=== PATIENT | female | born 1995 | race African-American/Black ===

== ENCOUNTER 2020-02-20 14:56 | Emergency (ER) | payer OTHER, SELFPAY ==
[~2020-02-20] VITALS: Ht 162.6 cm; Wt 69.9 kg
[2020-02-20 15:17] VITALS: Ht 162.6 cm; Wt 69.9 kg
[2020-02-20 16:30] VITALS: BP 124/87
== END 2020-02-20 16:30 | disposition home or self-care (01) ==
LOC: ED 14:56
DX: U07.1 COVID-19 (principal); B34.9 Viral infection, unspecified
CPT/HCPCS: U0003-CS